=== PATIENT | female | born 1960 | race Asian ===

== ENCOUNTER → 2023-08-07 08:25 | Outpatient (CLI) | payer OTHER, MEDICAID, SELFPAY ==
[2023-08-07 10:00] LABS: Add Manual Diff / Slide Review NO; Basophils Absolute Auto 100 /uL (0-100); Basophils Percent Auto 0.7 % (0-2); Eosinophils Absolute Auto 200 /uL (0-450); Eosinophils Percent Auto 2.8 % (2-4); Hematocrit 42.1 % (36-46); Hemoglobin 14.1 g/dL (12.0-16.0); Lymphocytes Absolute Auto 2700 /uL (1100-4500); Lymphocytes Percent Auto 37.5 % (25-40); Mean Corpuscular HGB Conc 33.5 % (30-36); Mean Corpuscular Hemoglobin 30.4 PG (26-34); Mean Corpuscular Volume 90.8 fL (80-100); Monocytes Absolute Auto 400 /uL (0-900); Monocytes Percent Auto 5.6 % (3-14); Neutrophils Absolute Auto 3800 /uL (1500-7000); Neutrophils Percent Auto 53.4 % (50-75); Platelet Count 284 X10^3/uL (150-400); Red Blood Cell Count 4.64 X10^6/uL (4.0-5.2); Red Cell Distribution Width 13.5 % (11.6-14.8); White Blood Cell Count 7.1 X10^3/uL (4.5-11.0)
[2023-08-07 10:35] LABS: Alanine Aminotransferase 51 IU/L (<35); Albumin 4.3 g/dL (3.5-5.0); Albumin Globulin Ratio 1.3 (1.0-2.8); Alkaline Phosphatase 100 U/L (38-126); Aspartate Aminotransferase 30 IU/L (14-36); BUN Creatinine Ratio 28.6 (6-22); Bilirubin Total 0.6 mg/dL (0.2-1.3); Blood Urea Nitrogen 14 mg/dL (7-17); Calcium 9.5 mg/dL (8.4-10.2); Carbon Dioxide 25 mmol/L (22-32); Chloride 108 mmol/L (98-107); Estimated Glomerular Filt Rate > 60 mL/min (>60); Globulin 3.2 g/dL (1.7-4.1); Glucose 113 mg/dL (80-110); HEMOLYSIS < 15 (0-50); Potassium 4.2 mmol/L (3.4-5.1); Sodium 140 mmol/L (137-145); Total Protein 7.5 g/dL (6.3-8.2)
[2023-08-07 10:58] LABS: TSH w/ Reflex to FT4 0.72 uIU/mL (0.47-4.68)
[2023-08-08 02:36] LABS: Cholesterol HDL Ratio 4.7 ratio (0.0-4.4); Cholesterol,Total 206 mg/dL (100-199); HDL Cholesterol 44 mg/dL (>39); LDL Cholesterol Cal 142 mg/dL (0-99); Triglycerides 109 mg/dL (0-149); VLDL Cholesterol Cal 20 mg/dL (5-40)
== END ==
LOC: LAB 08:28
PROVIDERS: PCP Nurse Practitioner Family; Referring Provider Nurse Practitioner Family; Visit Provider Nurse Practitioner Family
DX: Z13.1 Encounter for screening for diabetes mellitus (principal); Z13.220 Encounter for screening for lipoid disorders; R03.0 Elevated blood-pressure reading, without diagnosis of hypertension
CPT/HCPCS: 36415; 80053; 80061; 84443; 85025

== ENCOUNTER → 2023-08-15 14:52 | Outpatient (CLI) | payer OTHER, MEDICAID, SELFPAY ==
--- NOTE | 2023-08-15 14:53 | DI.MG.S_ITS ---
BILATERAL DIGITAL SCREENING MAMMOGRAM 3D/2D WITH CAD: 08/15/2023 CLINICAL: Routine screening. Family history of breast cancer. Comparison is made to exams dated: 12/15/2014 mammogram, 09/07/2011 mammogram, and 08/11/2010 mammogram - [facility]. There are scattered areas of fibroglandular density in both breasts (category b / 25%-50% glandular tissue). Current study was also evaluated with a Computer Aided Detection (CAD) system. There is a new oval asymmetry with an indistinct margin in the left breast central to the nipple middle depth. No other significant masses, calcifications, or other findings are seen in either breast. IMPRESSION: INCOMPLETE: NEEDS ADDITIONAL IMAGING EVALUATION The new oval asymmetry in the left breast is indeterminate. Additional views with possible ultrasound are recommended. Based on the Tyrer Cuzick model (a risk assessment model) the patient's lifetime risk is 12.6% and her 10 year risk is 5.9%. According to the ACR, ACS, and NCCN guidelines, an annual breast MRI exam along with mammogram is recommended if the patient's lifetime risk is 20% or greater. This exam was interpreted at Station ID: [id number]. NOTE: For mammograms, a report in lay terms will be sent to the patient. Approximately 15% of breast malignancies will not be visualized mammographically. In the management of a palpable breast mass, a negative mammogram must not discourage biopsy of a clinically suspicious lesion. Electronically Signed By: Nupur simeon/nancy:08/17/2023 16:56:49 letter sent: Additional Imaging Needed ACR BI-RADS Category 0: Incomplete 3340F
== END ==
PROVIDERS: PCP Nurse Practitioner Family; Referring Provider Nurse Practitioner Family; Visit Provider Nurse Practitioner Family
DX: Z12.31 Encounter for screening mammogram for malignant neoplasm of breast (principal); Z80.3 Family history of malignant neoplasm of breast; R92.323 Mammographic fibroglandular density, bilateral breasts
CPT/HCPCS: 77063; 77067

== ENCOUNTER → 2023-09-24 12:29 | Outpatient (CLI) | payer OTHER, MEDICAID, SELFPAY ==
--- NOTE | 2023-09-24 12:31 | DI.RAD.S_ITS ---
PROCEDURE: XR DEXA AXIAL SKELETON INDICATIONS: OSTEOPOROSIS SCREENING COMPARISON: None. FINDINGS: Lumbar Spine: Bone mineral density 0.971 g/cm2, T score -0.7. Left Hip: Bone mineral density is 0.866 g/cm2, T score -0.6. Left Femoral Neck: Bone mineral density 0.700 g/cm2, T score -1.3. Right Hip: Bone mineral density 0.966 g/cm2, T score 0.2. Right Femoral Neck: Bone mineral density 0.749 g/cm2, T score -0.9. Fracture Risk Calculation (when applicable): 10-year fracture risk of a major osteoporotic fracture 8.3% and of a hip fracture 0.8%. (T score greater or equal to -1.0 to: NORMAL) (T score from -1.1 to -2.4: OSTEOPENIA) (T score less than or equal to -2.5: OSTEOPOROSIS) IMPRESSION: Mild osteopenia. Follow-up guidelines as follows: Osteoporosis: Consider a repeat DEXA and Vertebral Fracture Assessment (VFA) exam in 2 years or sooner if medically necessary, to reassess this patient's status. Osteopenia: Consider a repeat DEXA in 2-3 years to reassess this patient's status, or if there is a new clinical indication. Normal: Consider a repeat DEXA in 5 years or sooner, or if there is a new clinical indication. Dictated by: Bhargav Lane M.D. on 09/25/2023 at 22:41 Approved by: Bhargav Lane M.D. on 09/25/2023 at 22:43
--- NOTE | 2023-09-24 12:31 | DI.MG.S_ITS ---
UNILATERAL LEFT DIGITAL DIAGNOSTIC MAMMOGRAM 3D/2D WITH ADDITIONAL VIEWS: 09/24/2023 CLINICAL: Additional evaluation requested from prior study. Comparison is made to exams dated: 12/15/2014 mammogram, 09/07/2011 mammogram, 08/11/2010 mammogram, and 08/15/2023 mammogram - [facility]. There are scattered areas of fibroglandular density in the left breast (category b / 25%-50% glandular tissue). There is an oval focal asymmetry in the left breast at 6 o'clock middle depth. This is seen in additional views. No other significant masses or calcifications are seen in the breast. IMPRESSION: INCOMPLETE: NEEDS ADDITIONAL IMAGING EVALUATION The oval focal asymmetry in the left breast is indeterminate. An ultrasound is recommended. Based on the Tyrer Cuzick model (a risk assessment model) the patient's lifetime risk is 12.6% and her 10 year risk is 5.9%. According to the ACR, ACS, and NCCN guidelines, an annual breast MRI exam along with mammogram is recommended if the patient's lifetime risk is 20% or greater. This exam was interpreted at Station ID: [id number]. NOTE: For mammograms, a report in lay terms will be sent to the patient. Approximately 15% of breast malignancies will not be visualized mammographically. In the management of a palpable breast mass, a negative mammogram must not discourage biopsy of a clinically suspicious lesion. Electronically Signed By: Ray Terry M.D. lc/:09/24/2023 14:27:55 ACR BI-RADS Category 0: Incomplete 3340F
--- NOTE | 2023-09-24 12:32 | DI.US.S_ITS ---
LIMITED ULTRASOUND OF LEFT BREAST: 09/24/2023 CLINICAL: Patient returns today to evaluate a focal asymmetry in the left breast. Comparison is made to exams dated: 09/24/2023 mammogram, 08/15/2023 mammogram, 12/15/2014 mammogram, 09/07/2011 mammogram, 08/11/2010 mammogram, and 07/23/2009 mammogram - [facility]. Color flow and real-time ultrasound of the left breast 7-8 o'clock region were performed. Bustamante scale images of the real-time examination were reviewed. There is a possible 0.8 cm x 0.2 cm x 0.4 cm complicated cyst in the left breast at 7 o'clock middle depth 4 cm from the nipple. This correlates with mammography findings. There also is a possible 0.4 cm x 0.2 cm x 0.3 cm complicated cyst in the left breast at 8 o'clock middle depth 4 cm from the nipple. This correlates as an incidental finding. IMPRESSION: PROBABLY BENIGN The possible 0.8 cm x 0.2 cm x 0.4 cm complicated cyst in the left breast at 7 o'clock middle depth is probably benign. This correlates with screening mammography finding. The possible 0.4 cm x 0.2 cm x 0.3 cm complicated cyst in the left breast at 8 o'clock middle depth is probably benign. This is incidental. A follow-up mammogram and an ultrasound in 6 months is recommended to demonstrate stability. This exam was interpreted at Station ID: [id number]. Electronically Signed By: Ray Terry M.D. lc/:09/24/2023 14:30:42 letter sent: Followup Recommended Ultrasound BI-RADS: 3 Probably benign
== END ==
PROVIDERS: PCP Nurse Practitioner Family; Referring Provider Nurse Practitioner Family; Visit Provider Nurse Practitioner Family
DX: R92.8 Other abnormal and inconclusive findings on diagnostic imaging of breast (principal); N60.02 Solitary cyst of left breast; R92.322 Mammographic fibroglandular density, left breast; Z13.820 Encounter for screening for osteoporosis; M85.852 Other specified disorders of bone density and structure, left thigh; N95.1 Menopausal and female climacteric states
CPT/HCPCS: 76642; 77065; 77080; G0279

== ENCOUNTER → 2024-05-08 09:27 | Outpatient (CLI) | payer MEDICARE, MEDICAID, SELFPAY ==
--- NOTE | 2024-05-08 09:29 | DI.MG.S_ITS ---
UNILATERAL LEFT DIGITAL DIAGNOSTIC MAMMOGRAM 3D/2D: 05/08/2024 CLINICAL: Patient returns for a 6 month follow up of the left breast. Comparison is made to exams dated: 09/24/2023 mammogram, 08/15/2023 mammogram, and 12/15/2014 mammogram - [facility]. There are scattered areas of fibroglandular density (category b / 25%-50% glandular tissue). There is an 8 mm oval low density focal asymmetry in the left breast at 6 o'clock middle depth. This persists with additional views. This is not significantly changed. No other significant masses or calcifications are seen in the breast. IMPRESSION: INCOMPLETE: NEED ADDITIONAL IMAGING EVALUATION The 8 mm oval low density focal asymmetry in the left breast is stable. An ultrasound is recommended to confirm stability. This was performed immediately following this exam. Based on the Tyrer Cuzick model (a risk assessment model) the patient's lifetime risk is 12.1% and her 10 year risk is 5.9%. According to the ACR, ACS, and NCCN guidelines, an annual breast MRI exam along with mammogram is recommended if the patient's lifetime risk is 20% or greater. This exam was interpreted at Station ID: [id number]. NOTE: For mammograms, a report in lay terms will be sent to the patient. Approximately 15% of breast malignancies will not be visualized mammographically. In the management of a palpable breast mass, a negative mammogram must not discourage biopsy of a clinically suspicious lesion. Electronically Signed By: Nupur simeon/:05/08/2024 10:24:39 letter sent: Additional Imaging Needed ACR BI-RADS Category 0: Incomplete: Need Additional Imaging Evaluation
--- NOTE | 2024-05-08 09:29 | DI.US.S_ITS ---
LIMITED ULTRASOUND OF LEFT BREAST AND AXILLA: 05/08/2024 CLINICAL: 6 MO FOLLOW UP LT BREAST. Comparison is made to exams dated: 05/08/2024 mammogram, 09/24/2023 ultrasound, 09/24/2023 mammogram, 08/15/2023 mammogram, 12/15/2014 mammogram, and 09/07/[address] mammogram - [facility]. Color flow and real-time ultrasound of the left breast 6-8 o'clock, and axilla regions were performed. Bustamante scale images of the real-time examination were reviewed. There is a possible stable 0.9 cm x 0.2 cm x 0.4 cm oval complicated cyst in the left breast at 7 o'clock middle depth 4 cm from the nipple. This correlates with mammography findings. There also is a possible 0.6 cm x 0.2 cm x 0.2 cm complicated cyst in the left breast at 8 o'clock middle depth 4 cm from the nipple. This abnormality is not significantly changed and correlates as an incidental finding. Color flow imaging demonstrates that there is no vascularity present. Additionally, there is a 0.6 cm x 0.4 cm x 0.3 cm oval complicated cyst in the left breast at 6 o'clock middle depth 4 cm from the nipple. This correlates as an incidental finding. Color flow imaging demonstrates that there is no vascularity present. IMPRESSION: PROBABLY BENIGN The possible 0.9 cm complicated cyst in the left breast at 7 o'clock middle depth is stable, consistent with a complicated cyst and is probably benign. This likely correlates to the stable mammogram finding. The incidental 0.6 cm complicated cyst in the left breast at 8 o'clock middle depth is also stable and is probably benign. The incidental 0.6 cm complicated cyst at 6 o'clock middle depth is also probably benign. A follow-up left mammogram and an ultrasound in 6 months is recommended to demonstrate stability. Findings and recommendations were conveyed to the patient at time of exam. This exam was interpreted at Station ID: [id number]. Electronically Signed By: Nupur simeon/:05/08/2024 11:53:53 letter sent: Followup Recommended ACR BI-RADS Category 3: Probably Benign
== END ==
DX: R92.8 Other abnormal and inconclusive findings on diagnostic imaging of breast (principal); N60.02 Solitary cyst of left breast
CPT/HCPCS: 76642; 77065; G0279

== ENCOUNTER 2024-07-22 07:46 | Day surgery (SDC) | payer OTHER, SELFPAY ==
[2024-07-22] MEDS: LACTATED RINGERS 1,000 ML 42 ML IV (08:10)
[2024-07-22 08:18] VITALS: BP 144/89; PULSE 86; RESP 16; TEMP 36.4; O2SAT 96
--- NOTE | 2024-07-22 08:55 | P.HP_ITS ---
History of Present Illness History of Present Illness Date Patient Seen: 07/22/24 Time Patient Seen: 08:55 Chief complaint: SDC Narrative: 63-year-old female approximately 9 years since her last colonoscopy where she has had 2 polyps were removed. No changes in bowel habits. [facility] Social History Smoking Status: Never smoker alcohol intake: never Meds Home Medications and Allergies Home Medications Medication Instructions Recorded Confirmed Type No Known Home Medications 07/22/24 07/22/24 History Allergies Allergy/AdvReac Type Severity Reaction Status Date / Time No Known Drug Allergies Allergy Verified 07/22/24 08:09 Review of Systems Review of Systems ROS: Yes All systems reviewed with the patient and are negative except as otherwise documented Exam Vital Signs (past 8 hours): - 07/22/24 08:18 Temperature 97.5 F L Pulse Rate 86 Respiratory Rate 16 Blood Pressure 144/89 H Pulse Oximetry 96 Oxygen Delivery Method Room Air Oxygen Delivery Method Room Air Narrative Exam Narrative: Gen: NAD, sitting comfortably in bed, appears well HEENT: Sclera are anicteric, head is normocephalic and atraumatic, trachea is midline. CV: RRR, no JVD Resp: clear to auscultation bilaterally, equal chest wall movement bilaterally Abd: soft, nontender, normoactive bowel sounds Ext: no edema, full range of motion Neuro: Cranial nerves II-XII grossly intact, no focal deficits Skin: No erythema or ecchymosis Assessment & Plan Assessment and plan (1) Personal history of colonic polyps: Status: Acute Assessment & Plan narrative: Patient presents for colonoscopy Risks, benefits, alternatives to colonoscopy explained, including but not limited to bowel perforation or other serious complication requiring surgery at less than 1 in 5000 colonoscopies, abdominal pain, cramping or bleeding and less than 1% of colonoscopies, and the chances that we find a diagnosis that would require further intervention of about 2%. Patient agrees to proceed. Time-Based Coding :: [TOTAL MINUTES] spent with patient and on the chart (including review of chart, obtaining history, exam, reviewing outside data, placing orders, documenting exam and treatment plan, and counseling patient) on [DATE]. PROFEE Radioactivity Technician Document charge(s): No
--- NOTE | 2024-07-22 09:15 | PM.OP.COLON ---
Operative Date/Time/Diagnoses Date of procedure: 07/22/24 Time of procedure: 09:15 Pre-op diagnosis: Personal history of polyps Post-op diagnosis: same Procedure & Clinicians Study performed: Colonoscopy Same procedure as scheduled: Yes Indications: Personal history of polyps Surgeon: Anil Cancino Procedure Notes SCOAP/Timeout: Performed Procedure in detail: Time-out was performed. Mac was induced. Patient was placed in left lateral decubitus position. The perineum was inspected without any gross abnormality. Lubricated pediatric colonoscope was inserted and advanced to the cecum. The terminal ileum was intubated. The colonoscope was withdrawn slowly inspecting the circumference of the colon. Very small polyps may have been missed, prep quality was adequate. Retroflexed view of the rectum showed small, non prolapsed nonbleeding internal hemorrhoids. The scope was withdrawn the patient was taken to PACU in good condition. Scope withdrawal time: 7 Sedation minutes: 12 Specimen(s): none sent Complications: none Impression: Normal colon Post-procedure Recommendations: Colonoscopy in 10 years Follow up: as needed Disposition: PACU
[2024-07-22 09:21] VITALS: BP 106/62; PULSE 76; RESP 19; O2SAT 97
[2024-07-22 09:23] VITALS: BP 103/64; PULSE 76; RESP 19; TEMP 36.1; O2SAT 97
[2024-07-22 09:26] VITALS: BP 108/67; PULSE 71; RESP 18; O2SAT 98
[2024-07-22 09:36] VITALS: BP 122/79; PULSE 72; RESP 16; O2SAT 98
== END 2024-07-22 09:44 | disposition home or self-care (01) ==
PROVIDERS: Referring Provider Surgery; Visit Provider Surgery
PROC: 0DJD8ZZ Inspection of Lower Intestinal Tract, Via Natural or Artificial Opening Endoscopic (ICD-10-PCS; CPT 45378; principal; 2024-07-22 08:45)
DX: Z12.11 Encounter for screening for malignant neoplasm of colon (principal); Z86.0100 Personal history of colon polyps, unspecified; K64.8 Other hemorrhoids
CPT/HCPCS: G0105; J2405; J2704

== ENCOUNTER → 2024-12-23 08:53 | Outpatient (CLI) | payer OTHER, MEDICARE, SELFPAY ==
--- NOTE | 2024-12-23 08:56 | DI.US.S_ITS ---
MM diagnostic mammo BI, US breast LT limited: 12/23/2024 BI-RADS: 3 CLINICAL: 64-year old female for bilateral diagnostic mammogram and left diagnostic breast ultrasound that is a follow-up to ultrasound, left on 05/08/2024. Tyrer- Cuzick lifetime risk of 5.0%. No personal or first-degree family history of breast cancer. PRIOR EXAMS 05/08/2024, 09/24/2023, 08/15/2023. MAMMOGRAPHY TECHNIQUE: 2D and 3D (tomosynthesis) digital mammographic views obtained, with additional images as needed for full coverage. Current study was also evaluated with a Computer Aided Detection (CAD) system. ULTRASOUND TECHNIQUE TARGETED Left Breast Ultrasound: Real-time ultrasound exam was performed focused to area of clinical and/or imaging concern. Real-time donaldson scale and color doppler imaging of the area of clinical interest was performed with image documentation. DENSITY B. There are scattered areas of fibroglandular density. MAMMOGRAPHY FINDINGS Right: No suspicious mass, asymmetry, microcalcification, or other abnormality seen. Left (finding-1): Lower at 6:00, Middle depth, measuring 0.8cm: Correlating with prior imaging concern, there is a stable focal asymmetry present. No new suspicious mass, asymmetry, microcalcification, or other abnormality seen. ULTRASOUND FINDINGS Left (finding-1): Lower at 6:00, 7 cm from nipple, measuring 0.6 x 0.3 x 0.7 cm: Correlating with findings on mammogram, there is a cyst that is unchanged in size and appearance. Doppler shows no vascularity. Left: Lower Inner at 7:00, 4 cm from nipple, measuring 0.7 x 0.2 x 0.4 cm: Correlating with prior imaging concern simple cyst that has decreased in size. Left: Lower Inner at 8:00, 4 cm from nipple, measuring 0.3 x 0.1 x 0.2 cm: Correlating with prior imaging concern, there are clustered microcysts that have decreased in size. IMPRESSION: Right * No evidence of malignancy. Left (Simple Cyst): Lower at 6:00, 7 cm from nipple, measuring 0.6 x 0.3 x 0.7 cm * Probably Benign. RECOMMENDATIONS Right * Annual screening mammography in one year. Left: Lower at 6:00, 7 cm from nipple * Followup with diagnostic mammography and diagnostic ultrasound in one year to demonstrate 2 year stability. COMMENTS: Findings and recommendations were conveyed to the patient during today's evaluation. OVERALL ASSESSMENT CATEGORY BI-RADS-3: Probably Benign. ELECTRONICALLY SIGNED: Elvia Kitchen M.D. on 12/23/2024 at 10:27:54 AM PT Interpreting Station ID: [id number]
== END ==
DX: N60.02 Solitary cyst of left breast (principal); R92.2 Inconclusive mammogram
CPT/HCPCS: 76642; 77066; G0279